=== PATIENT | male | born 1970 | race Caucasian/White ===

== ENCOUNTER → 2019-05-26 | Emergency (ER) | payer OTHER ==
[~2019-05-26] VITALS: Ht 193 cm; Wt 99.8 kg
[~2019-05-26] MED LIST: FORTAMET500 MG
== END | disposition left against medical advice (07) ==
LOC: ER 11:44
DX: R60.0 Localized edema (principal); J90 Pleural effusion, not elsewhere classified; I50.9 Heart failure, unspecified